=== PATIENT | female | born 1965 | race Caucasian/White ===

== ENCOUNTER → 2020-08-12 05:00 | Outpatient (REF) | payer MEDICAID, SELFPAY ==
[2020-08-12 08:21] LABS: ALB/GLOB Ratio 0.6 RATIO (0.9-2.4); AST(SGOT) 8 U/L (15-37); Alanine Aminotransfer ALT/SGPT 14 U/L (13-56); Albumin, Serum 2.2 g/dL (3.2-5.0); Alkaline Phosphatase 66 U/L (45-117); Anion Gap 3 (5-15); BUN 15 mg/dL (7-18); BUN/Creat Ratio 26.7 RATIO (10-20); Calcium,Total 8.3 mg/dL (8.5-10.1); Chloride 103 mmol/L (98-107); Cholesterol 136 mg/dL (200); Creatinine, Serum 0.56 mg/dL (0.55-1.02); EST Glomerular Filtration Rate 120 mL/min (>60); Est Glom Filt Rate - Afr Amer 145 mL/min (>60); Globulin 3.8 g/dL (2.2-4.2); Glucose 82 mg/dL (74-106); High Density Lipoprotein 43 mg/dL; Magnesium 2.2 mg/dL (1.6-2.6); Potassium 3.8 mmol/L (3.5-5.1); Sodium Level 138 mmol/L (136-145); Thyroid Stim Hormone (TSH) 4.28 uIU/mL (0.358-3.74); Triglycerides 100 mg/dL; Very Low Density Lipoprotein 20 mg/dL (5-40)
[2020-08-12 08:24] LABS: Vitamin D,25 Hydroxy 58.7 ng/mL
[2020-08-12 08:30] LABS: Hematocrit 24.7 % (37-47); Hemoglobin 7.9 g/dL (12.0-15.0); Mean Corpuscular Hgb 39.9 pg (27.0-32.0); Mean Corpuscular Volume 124.7 fL (81-99); Mean Platelet Vol. 9.9 fl (6.2-12.0); POSITIVE MORPHOLOGY YES; Platelet Count 189 K/mm3 (150-450); Red Blood Count 1.98 M/mm3 (4.2-5.4); White Blood Count 5.4 K/mm3 (4.4-11.0)
[2020-08-12 08:34] LABS: Scan Indicated on CBC? Y/N YES- FLAGS NOTED
[2020-08-12 08:56] LABS: Differential Comment SEE COMMENTS
[2020-08-12 09:35] LABS: Hemoglobin A1c 5.3 % (3.8-5.6)
[2020-08-13 11:49] LABS: Pathologist Review Reviewed
== END ==
LOC: OLS.ACW200 05:00
PROVIDERS: Visit Provider Family Medicine
DX: R29.898 Other symptoms and signs involving the musculoskeletal system (principal); R29.6 Repeated falls; R27.9 Unspecified lack of coordination; R26.81 Unsteadiness on feet; E55.9 Vitamin D deficiency, unspecified; E78.5 Hyperlipidemia, unspecified; G40.89 Other seizures; D50.9 Iron deficiency anemia, unspecified
CPT/HCPCS: 36415; 80053; 80061; 82306; 83036; 83735; 84443; 85027

== ENCOUNTER → 2020-08-13 05:00 | Outpatient (REF) | payer MEDICAID, SELFPAY ==
[2020-08-13 08:39] LABS: Carbamazepine (Tegretol) 11.8 ug/mL (4.0-12.0)
== END ==
LOC: OLS.ACW200 05:00
PROVIDERS: Visit Provider Family Medicine
DX: R11.0 Nausea (principal); R29.898 Other symptoms and signs involving the musculoskeletal system; R29.6 Repeated falls; R27.9 Unspecified lack of coordination; R26.81 Unsteadiness on feet; E78.5 Hyperlipidemia, unspecified; G40.909 Epilepsy, unspecified, not intractable, without status epilepticus
CPT/HCPCS: 36415; 80156

== ENCOUNTER → 2020-08-30 03:00 | Outpatient (REF) | payer MEDICAID, SELFPAY ==
[2020-08-30 07:41] LABS: Color, Urine Yellow (Yellow); Glucose, Dipstick Normal (Normal); Ketone-Dipstick Negative (Negative); Leukocyte Esterase-Dipstick 500 /ul (Negative); Nitrite-Dipstick Negative (Negative); Occult Blood-Urine 150 /ul (Negative); Protein-Dipstick 30 mg/dl (Negative); Urine Bilirubin Dipstick Negative (Negative); Urine Clarity Cloudy (Clear); Urine Urobilinogen Normal (Normal)
== END ==
LOC: OLS.ACW100 03:00
PROVIDERS: Visit Provider Family Medicine
DX: N39.0 Urinary tract infection, site not specified (principal)
CPT/HCPCS: 81002; 87086; 87088

== ENCOUNTER → 2020-08-31 17:30 | Outpatient (REF) | payer MEDICAID, SELFPAY ==
[2020-09-01 09:21] LABS: Color, Urine Yellow (Yellow); Glucose, Dipstick Normal (Normal); Ketone-Dipstick Negative (Negative); Leukocyte Esterase-Dipstick 500 /ul (Negative); Nitrite-Dipstick Positive (Negative); Occult Blood-Urine 50 /ul (Negative); Protein-Dipstick 30 mg/dl (Negative); Urine Bilirubin Dipstick Negative (Negative); Urine Clarity Sl. Cloudy (Clear); Urine Urobilinogen Normal (Normal)
== END ==
LOC: OLS.ACW100 17:30
PROVIDERS: Referring Provider Family Medicine; Visit Provider Family Medicine
DX: R29.898 Other symptoms and signs involving the musculoskeletal system (principal); R29.6 Repeated falls; R27.9 Unspecified lack of coordination; R26.81 Unsteadiness on feet; E78.5 Hyperlipidemia, unspecified; G40.909 Epilepsy, unspecified, not intractable, without status epilepticus
CPT/HCPCS: 81002; 87077; 87086; 87088; 87186

== ENCOUNTER → 2021-09-23 | Outpatient (REF) | payer MEDICAID, SELFPAY ==
[2021-09-23 08:24] LABS: Hemoglobin 12.4 g/dL (12.0-15.0); Mean Corp Hgb Conc 32.6 g/dL (32-36); Mean Corpuscular Hgb 29.2 pg (27.0-32.0); Mean Corpuscular Volume 89.6 fL (81-99); Mean Platelet Vol. 9.3 fl (6.2-12.0); Platelet Count 287 K/mm3 (150-450); RBC Distribution Width CV 13.9 % (11.6-14.6); RBC Distribution Width SD 45.5 fl (35.1-43.9); Red Blood Count 4.24 M/mm3 (4.2-5.4); White Blood Count 8.8 K/mm3 (4.4-11.0)
[2021-09-23 08:34] LABS: ALB/GLOB Ratio 0.6 RATIO (0.9-2.4); AST(SGOT) 9 U/L (15-37); Alanine Aminotransfer ALT/SGPT 14 U/L (13-56); Albumin, Serum 2.5 g/dL (3.2-5.0); Alkaline Phosphatase 113 U/L (45-117); Amylase 22 U/L (25-115); Anion Gap 3 (5-15); BUN 10 mg/dL (7-18); BUN/Creat Ratio 25.8 RATIO (10-20); Calcium,Total 8.9 mg/dL (8.5-10.1); Chloride 93 mmol/L (98-107); Creatinine, Serum 0.39 mg/dL (0.55-1.02); EST Glomerular Filtration Rate 182 mL/min (>60); Est Glom Filt Rate - Afr Amer 221 mL/min (>60); Globulin 4.1 g/dL (2.2-4.2); Glucose 96 mg/dL (74-106); Lipase 34 U/L (73-393); Potassium 4.3 mmol/L (3.5-5.1); Protein, Total 6.6 g/dL (6.4-8.2); Sodium Level 132 mmol/L (136-145)
[2021-09-23 08:53] LABS: Color, Urine Yellow (Yellow); Glucose, Dipstick Normal (Normal); Ketone-Dipstick Negative (Negative); Leukocyte Esterase-Dipstick 500 /ul (Negative); Nitrite-Dipstick Negative (Negative); Occult Blood-Urine Negative /ul (Negative); Protein-Dipstick Negative (Negative); Urine Bilirubin Dipstick Negative (Negative); Urine Clarity Sl. Cloudy (Clear); Urine Urobilinogen Normal (Normal)
== END | disposition home or self-care (01) ==
LOC: OLS.ACW100 05:00
PROVIDERS: Referring Provider Family Medicine; Visit Provider Family Medicine
DX: R29.898 Other symptoms and signs involving the musculoskeletal system (principal); R29.6 Repeated falls; R27.9 Unspecified lack of coordination; R26.81 Unsteadiness on feet; E78.5 Hyperlipidemia, unspecified
CPT/HCPCS: 36415; 80053; 81002; 82150; 83690; 85027; 87077; 87086; 87088; 87186

== ENCOUNTER → 2021-10-27 | Outpatient (REF) | payer MEDICAID, SELFPAY | END | disposition home or self-care (01) | LOC: OLS.ACW100 14:00 | PROVIDERS: Visit Provider Family Medicine | DX: E78.5 Hyperlipidemia, unspecified (principal); R29.898 Other symptoms and signs involving the musculoskeletal system; R29.6 Repeated falls; R27.9 Unspecified lack of coordination; R26.81 Unsteadiness on feet | CPT/HCPCS: 87070; 87077; 87186; 87205 ==

== ENCOUNTER → 2021-12-02 | Outpatient (REF) | payer MEDICAID, SELFPAY ==
[2021-12-02 09:11] LABS: Hemoglobin 13.3 g/dL (12.0-15.0); Mean Corp Hgb Conc 30.9 g/dL (32-36); Mean Corpuscular Hgb 28.9 pg (27.0-32.0); Mean Corpuscular Volume 93.5 fL (81-99); Platelet Count 331 K/mm3 (150-450); RBC Distribution Width CV 15.4 % (11.6-14.6)
[2021-12-02 09:41] LABS: ALB/GLOB Ratio 0.7 RATIO (0.9-2.4); AST(SGOT) 11 U/L (15-37); Alanine Aminotransfer ALT/SGPT 13 U/L (13-56); Albumin, Serum 2.4 g/dL (3.2-5.0); Alkaline Phosphatase 74 U/L (45-117); Anion Gap 7 (5-15); BUN 9 mg/dL (7-18); BUN/Creat Ratio 33.5 RATIO (10-20); Calcium,Total 7.7 mg/dL (8.5-10.1); Chloride 97 mmol/L (98-107); Cholesterol 153 mg/dL (200); Creatinine, Serum 0.27 mg/dL (0.55-1.02); EST Glomerular Filtration Rate 278 mL/min (>60); Est Glom Filt Rate - Afr Amer 336 mL/min (>60); Free T3 1.3 pg/mL (2.18-3.98); Globulin 3.4 g/dL (2.2-4.2); Glucose 93 mg/dL (74-106); High Density Lipoprotein 56 mg/dL; Potassium 4.1 mmol/L (3.5-5.1); Protein, Total 5.8 g/dL (6.4-8.2); Sodium Level 137 mmol/L (136-145); T4 Free Direct 0.91 ng/dL (0.76-1.46); Thyroid Stim Hormone (TSH) 2.83 uIU/mL (0.358-3.74); Triglycerides 74 mg/dL; Very Low Density Lipoprotein 15 mg/dL (5-40)
[2021-12-02 10:16] LABS: Vitamin B12 970 pg/mL (211-911); Vitamin D,25 Hydroxy 41.9 ng/mL
== END | disposition home or self-care (01) ==
LOC: OLS.ACW100 05:00
PROVIDERS: Visit Provider Family Medicine
DX: E55.9 Vitamin D deficiency, unspecified (principal); R29.898 Other symptoms and signs involving the musculoskeletal system; R29.6 Repeated falls; R27.9 Unspecified lack of coordination; R26.81 Unsteadiness on feet; E78.5 Hyperlipidemia, unspecified
CPT/HCPCS: 36415; 80053; 80061; 80156; 82306; 82607; 84439; 84443; 84481; 85027